=== PATIENT | male | born 1985 | race Two or more races ===

== ENCOUNTER 2023-08-03 02:06 | Inpatient (IN) | payer MEDICAID ==
[~2023-08-03] VITALS: Ht 170.2 cm; Wt 68.5 kg
[~2023-08-03 02:06] MED LIST: FLUO-125 PO; FOLI-119 PO; LACO100T3 PO; LEVE250T18 PO; MIRT-94 PO; PANT40T PO; PHEN1CAP60 PO; QUET400T13 PO; THIA100T13 PO; TOPI100T68 PO
[2023-08-03] MEDS ORDERED: levETIRAcetam 500 MG/5ML INJ IV ONE (02:11)
[2023-08-03] MEDS ORDERED: LORazepam 2MG/ML-1ML VIAL ONE ×2 (02:11→02:33)
[2023-08-03] MEDS ORDERED: LORazepam 2MG/ML-1ML VIAL IV ONE ×4 (02:15→15:00)
[2023-08-03] MEDS ORDERED: SODIUM CHLORIDE 0.9% 1,000 ML IV ONE ×3 (02:15→04:00)
[2023-08-03 02:30] VITALS: PULSE 120; RESP 10; O2SAT 98
[2023-08-03 02:42] LABS: Hematocrit 35.8 % (41.0-53.0); Hemoglobin 12.1 g/dL (13.5-17.5); INR 1.08 (0.9-1.15); Mean Corpuscular Hemoglobin 29.8 pg (28.0-32.0); Mean Corpuscular Hgb Conc. 33.7 g/dL (32.0-36.0); Mean Corpuscular Volume 88.4 fL (80.0-100.0); Partial Thromboplastin Time 31.7 SEC (24.5-34.5); Prothrombin Time 11.3 sec (9.3-11.8); Red Blood Cells 4.05 10^6/uL (4.5-5.90); Red Cell Distribution Width 16.1 % (11.8-14.3); White Blood Cell 6.6 10^3/uL (4.4-10.8)
[2023-08-03] MEDS ORDERED: PANTOPRAZOLE 40 MG/10 ML VIAL INJ IV ONE (02:45)
[2023-08-03] MEDS ORDERED: PHENobarbital SODIUM INJ 260 MG in SODIUM CHL 0.9% 100 ML IV ONE (02:45)
[2023-08-03] MEDS ORDERED: ONDANSETRON HCL 4 MG/2 ML VIAL IV ONE (02:45)
[2023-08-03 02:46] LABS: Band Neutrophils % (manual) 0; Basophils % (manual) 0 (0.0-2.0); Blast Cells 0; Metamyelocytes % 0; Myelocytes % 0; Promyelocytes % 0; Reactive Lymphocytes 0
[2023-08-03 02:48] LABS: Phenytoin (Dilantin) 3.9 ug/mL (10-20)
[2023-08-03 02:49] LABS: Valproic Acid (Depakene) < 3.0 ug/mL (50-100)
[2023-08-03 02:50] LABS: Alanine Aminotransferase 69 U/L (7-40); Albumin 4.4 g/dL (3.2-4.8); Alkaline Phosphatase 100 U/L (46-116); Anion Gap 12 (5-15); Aspartate Aminotransferase 24 U/L (13-40); BUN/Creatinine Ratio 9.4 (10.0-20.0); Blood Alcohol 87.7 mg/dL (<10); Blood Urea Nitrogen 8 mg/dL (9-23); Calcium 8.5 mg/dL (8.7-10.4); Carbon Dioxide 18 mmol/L (20-30); Chloride 109 mmol/L (98-107); Glucose 97 mg/dL (74-106); Magnesium 1.9 mg/dL (1.6-2.6); Potassium 3.6 mmol/L (3.5-5.1); Sodium 139 mmol/L (136-145)
[2023-08-03 02:51] LABS: Bilirubin, Total 0.2 mg/dL (0.2-1.0); Lactic Acid w/Reflex 3.8 mmol/L (0.4-2.0); Total Protein 7.6 g/dL (5.7-8.2)
[2023-08-03] MEDS ORDERED: PHENobarbital SODIUM 130 MG/ML VL ONE ×2 (02:51→19:47)
[2023-08-03] MEDS ORDERED: PHENYTOIN IV DILANTIN 1,000 MG in SODIUM CHL 0.9% 250 ML IV ONE (03:30)
[2023-08-03] MEDS ORDERED: MVI in SODIUM CHLORIDE 0.9% 1,010 ML ONE (04:17)
[2023-08-03] MEDS ORDERED: THIAMINE 100mg/ml INJ (200mg/2ml VIAL) ONE (04:17)
[2023-08-03] MEDS: FOLIC ACID 1 MG, MULTIPLE VITAMIN 10 ML, MAGNESIUM SULF SDV 50% 8 MEQ, THIAMINE INJ 100... INJ SCH ×10 (04:20→12:59)
[2023-08-03 04:28] LABS: Eosinophils % (manual) 1 (0-7); Lymphocytes % (manual) 64 (10.0-50.0); Monocytes % (manual) 5 (0-12); Platelet Estimate Increased
[2023-08-03 08:30] VITALS: PULSE 94; RESP 14; O2SAT 99
[2023-08-03] MEDS ORDERED: NITROGLYCERIN 0.4 MG SL TAB SL PRN (09:00)
[2023-08-03] MEDS ORDERED: LACOSAMIDE 50 MG TAB PO SCH (10:00)
[2023-08-03] MEDS ORDERED: LACOSAMIDE 200 mg/20ml VIAL IV SCH ×2 (11:00)
[2023-08-03] MEDS: SODIUM CHLORIDE 0.9% 1,000 ML IV SCH ×2 (11:02→15:06)
[2023-08-03] MEDS: FLUoxetine HCL 20 MG CAP PO SCH (11:23)
[2023-08-03] MEDS: FOLIC ACID 1 MG TAB PO SCH (11:23)
[2023-08-03] MEDS: TOPIRAMATE 100 MG TAB PO SCH ×2 (11:23→21:59)
[2023-08-03] MEDS: THIAMINE HCL 100 MG TAB PO SCH (11:24)
[2023-08-03] MEDS: ENOXAPARIN SOD 40 MG/0.4 ML SYRINGE SC SCH (12:19)
[2023-08-03] MEDS: LACOSAMIDE 100 MG in SODIUM CHL 0.9% 50 ML IV SCH ×2 (13:00→21:59)
[2023-08-03] MEDS: PHENYTOIN SODIUM 50 MG/ML 2ML VIAL IV SCH ×2 (13:48→21:59)
[2023-08-03] MEDS: LORazepam 2MG/ML-1ML VIAL IV PRN ×5 (13:54→22:31)
[2023-08-03] MEDS: MIRTAZAPINE 30 MG TAB PO SCH (18:00)
[2023-08-03] MEDS: ACETAMINOPHEN 325 MG TAB PO PRN (18:55)
[2023-08-03 19:30] VITALS: PULSE 75; RESP 20; O2SAT 99
[2023-08-03] MEDS ORDERED: PHENobarbital SODIUM 130 MG/ML VL IV ONE (19:45)
[2023-08-04] VITALS (52 sets, daily range): BP systolic 78–121; BP diastolic 39–80; PULSE 44–119; RESP 7–20; TEMP 97.6–97.9; O2SAT 94–100
[2023-08-04] MEDS ORDERED: MIDAZOLAM HCL 2MG/2ML 2ml VIAL (1mg/ml) IV ONE
[2023-08-04] MEDS ORDERED: SODIUM CHLORIDE 0.9% 1,000 ML IV ONE (00:30)
[2023-08-04] MEDS: SODIUM CHLORIDE 0.9% 1,000 ML IV SCH ×3 (01:42→18:20)
[2023-08-04] MEDS ORDERED: PHENYLEPHRINE IV 250 ML IV ONE (02:30)
[2023-08-04] MEDS: PHENYLEPHRINE IV 250 ML IV SCH ×3 (02:41→21:28)
[2023-08-04] MEDS: PHENYTOIN SODIUM 50 MG/ML 2ML VIAL IV SCH ×3 (06:13→21:31)
[2023-08-04] MEDS: LORazepam 2MG/ML-1ML VIAL IV PRN ×8 (06:23→19:45)
[2023-08-04 07:23] LABS: Basophils # (auto) 0.1 10 ^3/uL (0-0.2); Eosinophils # (auto) 0.2 10 ^3/uL (0-0.8); Hemoglobin 10.9 g/dL (13.5-17.5); Lymphocytes # (auto) 2.3 10 ^3/uL (0.4-5.4); Red Cell Distribution Width 15.9 % (11.8-14.3)
[2023-08-04 07:27] LABS: Basophils % (auto) 1.3 % (0.0-2.0); Eosinophils % (auto) 3.6 % (0.0-7.0); Hematocrit 32.2 % (41.0-53.0); Lymphocytes % (auto) 49.7 % (10.0-50.0); Mean Corpuscular Hemoglobin 29.8 pg (28.0-32.0); Mean Corpuscular Hgb Conc. 33.8 g/dL (32.0-36.0); Mean Corpuscular Volume 88.2 fL (80.0-100.0); Monocytes # (auto) 0.4 10 ^3/uL (0-1.3); Monocytes % (auto) 9.5 % (0.0-12.0); Neutrophils # (auto) 1.6 10 ^3/uL (1.6-8.6); Neutrophils % (auto) 35.9 % (37.0-80.0); Red Blood Cells 3.65 10^6/uL (4.5-5.90); White Blood Cell 4.6 10^3/uL (4.4-10.8)
[2023-08-04 07:49] LABS: Phenytoin (Dilantin) 5.6 ug/mL (10-20); Valproic Acid (Depakene) < 3.0 ug/mL (50-100)
[2023-08-04 07:50] LABS: Alanine Aminotransferase 49 U/L (7-40); Albumin 3.5 g/dL (3.2-4.8); Alkaline Phosphatase 77 U/L (46-116); Anion Gap 9 (5-15); Aspartate Aminotransferase 21 U/L (13-40); Bilirubin, Total 0.6 mg/dL (0.2-1.0); Blood Alcohol < 3.0 mg/dL (<10); Blood Urea Nitrogen 6 mg/dL (9-23); Calcium 8.3 mg/dL (8.5-10.1); Carbon Dioxide 19 mmol/L (20-30); Chloride 113 mmol/L (98-107); Glucose 80 mg/dL (74-106); Potassium 3.9 mmol/L (3.5-5.1); Sodium 141 mmol/L (136-145); Total Protein 5.8 g/dL (5.7-8.2)
[2023-08-04] MEDS ORDERED: LIDOCAINE 2% JELLY 11ml (GLYDO) UR ONE (09:45)
[2023-08-04] MEDS: LACOSAMIDE 100 MG in SODIUM CHL 0.9% 50 ML IV SCH ×2 (10:00→22:26)
[2023-08-04] MEDS: FOLIC ACID 1 MG TAB PO SCH (10:55)
[2023-08-04] MEDS: FLUoxetine HCL 20 MG CAP PO SCH (10:55)
[2023-08-04] MEDS: TOPIRAMATE 100 MG TAB PO SCH ×2 (10:55→21:30)
[2023-08-04] MEDS: THIAMINE HCL 100 MG TAB PO SCH (10:56)
[2023-08-04] MEDS: ENOXAPARIN SOD 40 MG/0.4 ML SYRINGE SC SCH (10:56)
[2023-08-04] MEDS: MIRTAZAPINE 30 MG TAB PO SCH (17:54)
[2023-08-05] VITALS (98 sets, daily range): BP systolic 72–124; BP diastolic 28–88; PULSE 44–145; RESP 8–37; TEMP 97.4–99.2; O2SAT 91–100
[2023-08-05] MEDS: SODIUM CHLORIDE 0.9% 1,000 ML IV SCH (02:44)
[2023-08-05] MEDS: PHENYLEPHRINE IV 250 ML IV SCH ×4 (03:43→20:46)
[2023-08-05] MEDS: LORazepam 2MG/ML-1ML VIAL IV PRN ×6 (05:08→18:09)
[2023-08-05] MEDS: PHENYTOIN SODIUM 50 MG/ML 2ML VIAL IV SCH ×3 (05:17→22:19)
[2023-08-05] MEDS: FOLIC ACID 1 MG TAB PO SCH (09:20)
[2023-08-05] MEDS: THIAMINE HCL 100 MG TAB PO SCH (09:21)
[2023-08-05] MEDS: FLUoxetine HCL 20 MG CAP PO SCH (09:21)
[2023-08-05] MEDS: TOPIRAMATE 100 MG TAB PO SCH ×2 (09:21→22:19)
[2023-08-05] MEDS: ENOXAPARIN SOD 40 MG/0.4 ML SYRINGE SC SCH (09:22)
[2023-08-05] MEDS: LACOSAMIDE 100 MG in SODIUM CHL 0.9% 50 ML IV SCH ×2 (09:50→22:41)
[2023-08-05] MEDS: FOLIC ACID 1 MG, MULTIPLE VITAMIN 10 ML, MAGNESIUM SULF SDV 50% 8 MEQ, THIAMINE INJ 100... INJ SCH ×5 (12:00)
[2023-08-05] MEDS ORDERED: SODIUM CHLORIDE 0.9% 1,000 ML IV ONE (15:00)
[2023-08-05] MEDS: MIRTAZAPINE 30 MG TAB PO SCH (18:09)
[2023-08-06] VITALS (94 sets, daily range): BP systolic 79–126; BP diastolic 35–90; PULSE 52–126; RESP 8–20; TEMP 98.4–98.9; O2SAT 71–100
[2023-08-06] MEDS: LORazepam 2MG/ML-1ML VIAL IV PRN ×8 (03:16→22:15)
[2023-08-06] MEDS: PHENYLEPHRINE IV 250 ML IV SCH ×4 (04:08→19:12)
[2023-08-06] MEDS: PHENYTOIN SODIUM 50 MG/ML 2ML VIAL IV SCH ×3 (05:44→21:28)
[2023-08-06 10:15] LABS: Basophils # (auto) 0.1 10 ^3/uL (0-0.2); Eosinophils # (auto) 0.3 10 ^3/uL (0-0.8); Eosinophils % (auto) 3.3 % (0.0-7.0); Hematocrit 36.3 % (41.0-53.0); Hemoglobin 12.2 g/dL (13.5-17.5); Lymphocytes # (auto) 3.4 10 ^3/uL (0.4-5.4); Mean Corpuscular Hgb Conc. 33.7 g/dL (32.0-36.0); Neutrophils # (auto) 3.4 10 ^3/uL (1.6-8.6); Nucleated Red Blood Cells % 0.1 %
[2023-08-06 10:18] LABS: Basophils % (auto) 1.1 % (0.0-2.0); Lymphocytes % (auto) 44.1 % (10.0-50.0); Mean Corpuscular Hemoglobin 29.8 pg (28.0-32.0); Mean Corpuscular Volume 88.4 fL (80.0-100.0); Monocytes # (auto) 0.6 10 ^3/uL (0-1.3); Monocytes % (auto) 8.1 % (0.0-12.0); Neutrophils % (auto) 43.4 % (37.0-80.0); Red Blood Cells 4.11 10^6/uL (4.5-5.90); Red Cell Distribution Width 15.6 % (11.8-14.3); White Blood Cell 7.7 10^3/uL (4.4-10.8)
[2023-08-06 10:39] LABS: Chloride 107 mmol/L (98-107); Potassium 3.7 mmol/L (3.5-5.1); Sodium 139 mmol/L (136-145)
[2023-08-06 10:40] LABS: Anion Gap 11 (5-15); Carbon Dioxide 21 mmol/L (20-30)
[2023-08-06 10:41] LABS: Calcium 9.2 mg/dL (8.5-10.1)
[2023-08-06 10:45] LABS: Glucose 61 mg/dL (74-106)
[2023-08-06 10:50] LABS: BUN/Creatinine Ratio 6.6 (10.0-20.0); Blood Urea Nitrogen < 5 mg/dL (9-23)
[2023-08-06] MEDS: ENOXAPARIN SOD 40 MG/0.4 ML SYRINGE SC SCH (11:21)
[2023-08-06] MEDS: TOPIRAMATE 100 MG TAB PO SCH ×2 (11:21→21:29)
[2023-08-06] MEDS: FOLIC ACID 1 MG TAB PO SCH (11:22)
[2023-08-06] MEDS: FLUoxetine HCL 20 MG CAP PO SCH (11:22)
[2023-08-06] MEDS: THIAMINE HCL 100 MG TAB PO SCH (11:22)
[2023-08-06] MEDS: LACTATED RINGER'S 1,000 ML IV SCH ×2 (11:24→21:27)
[2023-08-06] MEDS: FOLIC ACID 1 MG, MULTIPLE VITAMIN 10 ML, MAGNESIUM SULF SDV 50% 8 MEQ, THIAMINE INJ 100... INJ SCH ×5 (12:00)
[2023-08-06] MEDS: LACOSAMIDE 100 MG in SODIUM CHL 0.9% 50 ML IV SCH ×2 (12:33→21:52)
[2023-08-06] MEDS: MORPHINE SULFATE INJ 2 MG/ml SYRG IV PRN ×3 (15:06→23:08)
[2023-08-06] MEDS: MIRTAZAPINE 30 MG TAB PO SCH (18:00)
[2023-08-06] MEDS: ACETAMINOPHEN 325 MG TAB PO PRN (22:46)
[2023-08-07] VITALS (92 sets, daily range): BP systolic 79–126; BP diastolic 28–88; PULSE 46–103; RESP 7–18; TEMP 98.1–98.6; O2SAT 87–100
[2023-08-07] MEDS: LORazepam 2MG/ML-1ML VIAL IV PRN ×6 (00:58→17:18)
[2023-08-07] MEDS: PHENYLEPHRINE IV 250 ML IV SCH ×5 (02:18→23:19)
[2023-08-07] MEDS: PHENYTOIN SODIUM 50 MG/ML 2ML VIAL IV SCH ×3 (05:07→22:18)
[2023-08-07] MEDS: LACTATED RINGER'S 1,000 ML IV SCH ×3 (07:26→23:20)
[2023-08-07] MEDS: TOPIRAMATE 100 MG TAB PO SCH ×2 (09:05→22:17)
[2023-08-07] MEDS: THIAMINE HCL 100 MG TAB PO SCH (09:05)
[2023-08-07] MEDS: FOLIC ACID 1 MG TAB PO SCH (09:05)
[2023-08-07] MEDS: ENOXAPARIN SOD 40 MG/0.4 ML SYRINGE SC SCH (09:11)
[2023-08-07] MEDS: FLUoxetine HCL 20 MG CAP PO SCH (09:37)
[2023-08-07] MEDS: LACOSAMIDE 100 MG in SODIUM CHL 0.9% 50 ML IV SCH ×2 (12:26→22:25)
[2023-08-07] MEDS: MIDODRINE HCL 10 MG TAB PO SCH ×2 (13:11→18:32)
[2023-08-07] MEDS: FOLIC ACID 1 MG, MULTIPLE VITAMIN 10 ML, MAGNESIUM SULF SDV 50% 8 MEQ, THIAMINE INJ 100... INJ SCH ×5 (13:14)
[2023-08-07] MEDS: MIRTAZAPINE 30 MG TAB PO SCH (18:28)
[2023-08-08] VITALS (99 sets, daily range): BP systolic 84–140; BP diastolic 39–90; PULSE 45–140; RESP 6–23; TEMP 98–98.3; O2SAT 90–100
[2023-08-08 04:14] LABS: Hemoglobin 12.2 g/dL (13.5-17.5); Neutrophils # (auto) 3.7 10 ^3/uL (1.6-8.6); White Blood Cell 8.9 10^3/uL (4.4-10.8)
[2023-08-08 04:17] LABS: Basophils # (auto) 0.1 10 ^3/uL (0-0.2); Basophils % (auto) 0.7 % (0.0-2.0); Eosinophils # (auto) 0.4 10 ^3/uL (0-0.8); Hematocrit 36.3 % (41.0-53.0); Lymphocytes % (auto) 44.9 % (10.0-50.0); Mean Corpuscular Hemoglobin 29.8 pg (28.0-32.0); Mean Corpuscular Hgb Conc. 33.6 g/dL (32.0-36.0); Mean Corpuscular Volume 88.7 fL (80.0-100.0); Monocytes # (auto) 0.8 10 ^3/uL (0-1.3); Monocytes % (auto) 8.9 % (0.0-12.0); Neutrophils % (auto) 41.5 % (37.0-80.0); Red Blood Cells 4.09 10^6/uL (4.5-5.90); Red Cell Distribution Width 15.3 % (11.8-14.3)
[2023-08-08 04:21] LABS: Anion Gap 10 (5-15); Carbon Dioxide 21 mmol/L (20-30); Chloride 111 mmol/L (98-107); Potassium 3.6 mmol/L (3.5-5.1); Sodium 142 mmol/L (136-145)
[2023-08-08 04:22] LABS: Calcium 8.8 mg/dL (8.7-10.4)
[2023-08-08 04:27] LABS: Glucose 103 mg/dL (74-106)
[2023-08-08] MEDS: PHENYLEPHRINE IV 250 ML IV SCH ×4 (04:47→20:49)
[2023-08-08 04:50] LABS: BUN/Creatinine Ratio 6.3 (10.0-20.0); Blood Urea Nitrogen < 5 mg/dL (9-23)
[2023-08-08] MEDS: MIDODRINE HCL 10 MG TAB PO SCH ×3 (05:51→18:34)
[2023-08-08] MEDS: PHENYTOIN SODIUM 50 MG/ML 2ML VIAL IV SCH ×3 (05:51→21:40)
[2023-08-08] MEDS: LORazepam 2MG/ML-1ML VIAL IV PRN ×8 (07:27→18:16)
[2023-08-08] MEDS: LACTATED RINGER'S 1,000 ML IV SCH ×2 (10:39→15:20)
[2023-08-08] MEDS: ENOXAPARIN SOD 40 MG/0.4 ML SYRINGE SC SCH (11:02)
[2023-08-08] MEDS: TOPIRAMATE 100 MG TAB PO SCH ×2 (11:02→21:39)
[2023-08-08] MEDS: FLUoxetine HCL 20 MG CAP PO SCH (11:03)
[2023-08-08] MEDS: THIAMINE HCL 100 MG TAB PO SCH (11:03)
[2023-08-08] MEDS: FOLIC ACID 1 MG TAB PO SCH (11:03)
[2023-08-08] MEDS: LACOSAMIDE 100 MG in SODIUM CHL 0.9% 50 ML IV SCH ×2 (11:31→19:59)
[2023-08-08] MEDS: FOLIC ACID 1 MG, MULTIPLE VITAMIN 10 ML, MAGNESIUM SULF SDV 50% 8 MEQ, THIAMINE INJ 100... INJ SCH ×5 (12:22)
[2023-08-08] MEDS ORDERED: BACLOFEN 10 MG TAB PO ONE (14:45)
[2023-08-08] MEDS: MIRTAZAPINE 30 MG TAB PO SCH (18:34)
[2023-08-08] MEDS: BACLOFEN 10 MG TAB PO PRN (20:07)
[2023-08-09] VITALS (98 sets, daily range): BP systolic 72–135; BP diastolic 37–99; PULSE 41–127; RESP 7–19; TEMP 97.7–98.5; O2SAT 85–100
[2023-08-09] MEDS: LACTATED RINGER'S 1,000 ML IV SCH ×2 (01:10→17:25)
[2023-08-09] MEDS: PHENYLEPHRINE IV 250 ML IV SCH ×3 (01:10→09:02)
[2023-08-09] MEDS: MIDODRINE HCL 10 MG TAB PO SCH ×3 (05:33→17:21)
[2023-08-09] MEDS: PHENYTOIN SODIUM 50 MG/ML 2ML VIAL IV SCH ×3 (05:33→22:32)
[2023-08-09] MEDS: LORazepam 2MG/ML-1ML VIAL IV PRN ×6 (08:44→17:34)
[2023-08-09] MEDS: THIAMINE HCL 100 MG TAB PO SCH (08:54)
[2023-08-09] MEDS: FOLIC ACID 1 MG TAB PO SCH (08:54)
[2023-08-09] MEDS: FLUoxetine HCL 20 MG CAP PO SCH (08:54)
[2023-08-09] MEDS: THIAMINE 100mg/ml INJ (200mg/2ml VIAL) IV SCH (08:54)
[2023-08-09] MEDS: ENOXAPARIN SOD 40 MG/0.4 ML SYRINGE SC SCH (08:54)
[2023-08-09] MEDS: TOPIRAMATE 100 MG TAB PO SCH ×2 (09:06→22:32)
[2023-08-09] MEDS: LACOSAMIDE 100 MG in SODIUM CHL 0.9% 50 ML IV SCH ×2 (09:56→22:32)
[2023-08-09] MEDS: PHENYLEPHRINE INJ 80 MG in SODIUM CHL 0.9% 242 ML IV SCH (10:30)
[2023-08-09] MEDS: ACETAMINOPHEN 325 MG TAB PO PRN (11:13)
[2023-08-09 12:39] LABS: INR 1.09 (0.9-1.15); Partial Thromboplastin Time 37.1 SEC (24.5-34.5); Prothrombin Time 11.4 sec (9.3-11.8)
[2023-08-09] MEDS: HYDROcodone-ACET 5/325MG TAB PO PRN (12:55)
[2023-08-09] MEDS: BACLOFEN 10 MG TAB PO PRN (14:44)
[2023-08-09] MEDS ORDERED: LIDOCAINE 1% (LOCAL ANESTH.) PF 5ml SDV ID ONE (14:45)
[2023-08-09] MEDS: MIRTAZAPINE 30 MG TAB PO SCH (17:21)
[2023-08-09] MEDS: SODIUM CHLOR 0.9% PF (SALINE LOCK) 10ML VIAL/SYR IV SCH (22:33)
[2023-08-10] VITALS (93 sets, daily range): BP systolic 87–141; BP diastolic 49–89; PULSE 45–126; RESP 9–20; TEMP 97.8–98.3; O2SAT 79–100
[2023-08-10] MEDS: LORazepam 2MG/ML-1ML VIAL IV PRN ×8 (01:35→18:23)
[2023-08-10] MEDS ORDERED: LORazepam 2MG/ML-1ML VIAL ONE ×2 (01:44→01:56)
[2023-08-10] MEDS ORDERED: LORazepam 2MG/ML-1ML VIAL IV ONE (02:00)
[2023-08-10] MEDS ORDERED: MIDAZOLAM HCL 2MG/2ML 2ml VIAL (1mg/ml) ONE (02:14)
[2023-08-10] MEDS ORDERED: MIDAZOLAM HCL 2MG/2ML 2ml VIAL (1mg/ml) IV ONE (02:15)
[2023-08-10] MEDS: ACETAMINOPHEN 325 MG TAB PO PRN (03:32)
[2023-08-10 04:07] LABS: Hematocrit 35.8 % (41.0-53.0); Hemoglobin 11.7 g/dL (13.5-17.5); Mean Corpuscular Hemoglobin 29.3 pg (28.0-32.0); Mean Corpuscular Hgb Conc. 32.8 g/dL (32.0-36.0); Mean Corpuscular Volume 89.2 fL (80.0-100.0); Red Blood Cells 4.01 10^6/uL (4.5-5.90); Red Cell Distribution Width 15.7 % (11.8-14.3); White Blood Cell 7.7 10^3/uL (4.4-10.8)
[2023-08-10 04:09] LABS: Band Neutrophils % (manual) 0; Basophils % (manual) 0 (0.0-2.0); Blast Cells 0; Metamyelocytes % 0; Myelocytes % 0; Promyelocytes % 0; Reactive Lymphocytes 0
[2023-08-10 04:27] LABS: Anion Gap 9 (5-15); Carbon Dioxide 19 mmol/L (20-30); Chloride 116 mmol/L (98-107); Potassium 3.4 mmol/L (3.5-5.1); Sodium 144 mmol/L (136-145)
[2023-08-10 04:28] LABS: Calcium 7.6 mg/dL (8.7-10.4)
[2023-08-10 04:33] LABS: Glucose 124 mg/dL (74-106)
[2023-08-10 04:37] LABS: BUN/Creatinine Ratio 7.4 (10.0-20.0); Blood Urea Nitrogen < 5 mg/dL (9-23)
[2023-08-10] MEDS: LACTATED RINGER'S 1,000 ML IV SCH ×2 (04:51→17:30)
[2023-08-10 05:01] LABS: Eosinophils % (manual) 5 (0-7); Lymphocytes % (manual) 60 (10.0-50.0); Monocytes % (manual) 2 (0-12); Platelet Estimate Adequate; RBC Morphology Normal
[2023-08-10] MEDS: PHENYTOIN SODIUM 50 MG/ML 2ML VIAL IV SCH ×3 (06:19→22:08)
[2023-08-10] MEDS: MIDODRINE HCL 10 MG TAB PO SCH ×3 (06:19→17:29)
[2023-08-10] MEDS: FLUoxetine HCL 20 MG CAP PO SCH (09:15)
[2023-08-10] MEDS: ENOXAPARIN SOD 40 MG/0.4 ML SYRINGE SC SCH (09:15)
[2023-08-10] MEDS: TOPIRAMATE 100 MG TAB PO SCH ×2 (09:15→22:08)
[2023-08-10] MEDS: THIAMINE 100mg/ml INJ (200mg/2ml VIAL) IV SCH (09:15)
[2023-08-10] MEDS: SODIUM CHLOR 0.9% PF (SALINE LOCK) 10ML VIAL/SYR IV SCH ×2 (09:16→22:08)
[2023-08-10] MEDS: FOLIC ACID 1 MG TAB PO SCH (09:16)
[2023-08-10] MEDS: LACOSAMIDE 100 MG in SODIUM CHL 0.9% 50 ML IV SCH ×2 (09:44→22:08)
[2023-08-10] MEDS: PHENYLEPHRINE INJ 80 MG in SODIUM CHL 0.9% 242 ML IV SCH (10:30)
[2023-08-10] MEDS ORDERED: POTASSIUM CHL 20 Meq TABLET PO ONE (13:15)
[2023-08-10] MEDS: MIRTAZAPINE 30 MG TAB PO SCH (17:29)
[2023-08-11] VITALS (97 sets, daily range): BP systolic 79–133; BP diastolic 44–82; PULSE 49–165; RESP 9–24; TEMP 97.9–98.3; O2SAT 91–100
[2023-08-11 04:30] LABS: Basophils # (auto) 0.1 10 ^3/uL (0-0.2); Basophils % (auto) 0.8 % (0.0-2.0); Eosinophils # (auto) 0.4 10 ^3/uL (0-0.8); Eosinophils % (auto) 5.4 % (0.0-7.0); Lymphocytes # (auto) 3.9 10 ^3/uL (0.4-5.4); Lymphocytes % (auto) 52.6 % (10.0-50.0); Mean Corpuscular Hemoglobin 29.4 pg (28.0-32.0); Mean Corpuscular Hgb Conc. 33.2 g/dL (32.0-36.0); Mean Corpuscular Volume 88.5 fL (80.0-100.0); Monocytes # (auto) 0.6 10 ^3/uL (0-1.3); Monocytes % (auto) 7.9 % (0.0-12.0); Neutrophils # (auto) 2.5 10 ^3/uL (1.6-8.6); Neutrophils % (auto) 33.3 % (37.0-80.0); Red Blood Cells 4.07 10^6/uL (4.5-5.90); White Blood Cell 7.4 10^3/uL (4.4-10.8)
[2023-08-11 04:43] LABS: Anion Gap 8 (5-15); Carbon Dioxide 23 mmol/L (20-30); Chloride 112 mmol/L (98-107); Potassium 3.4 mmol/L (3.5-5.1); Sodium 143 mmol/L (136-145)
[2023-08-11 04:44] LABS: Calcium 8.9 mg/dL (8.7-10.4)
[2023-08-11 04:49] LABS: BUN/Creatinine Ratio 8.6 (10.0-20.0); Blood Urea Nitrogen 7 mg/dL (9-23); Glucose 107 mg/dL (74-106)
[2023-08-11] MEDS: PHENYLEPHRINE INJ 80 MG in SODIUM CHL 0.9% 242 ML IV SCH (05:38)
[2023-08-11] MEDS: PHENYTOIN SODIUM 50 MG/ML 2ML VIAL IV SCH (05:40)
[2023-08-11] MEDS: MIDODRINE HCL 10 MG TAB PO SCH ×3 (05:40→17:43)
[2023-08-11] MEDS: LORazepam 2MG/ML-1ML VIAL IV PRN ×12 (07:51→23:30)
[2023-08-11] MEDS: ENOXAPARIN SOD 40 MG/0.4 ML SYRINGE SC SCH (08:29)
[2023-08-11] MEDS: TOPIRAMATE 100 MG TAB PO SCH ×2 (08:30→22:16)
[2023-08-11] MEDS: FOLIC ACID 1 MG TAB PO SCH (08:30)
[2023-08-11] MEDS: FLUoxetine HCL 20 MG CAP PO SCH (08:30)
[2023-08-11] MEDS: HYDROcodone-ACET 5/325MG TAB PO PRN ×2 (08:30→16:00)
[2023-08-11] MEDS: SODIUM CHLOR 0.9% PF (SALINE LOCK) 10ML VIAL/SYR IV SCH ×2 (08:30→22:16)
[2023-08-11] MEDS: LACTATED RINGER'S 1,000 ML IV SCH (09:25)
[2023-08-11] MEDS: THIAMINE 100mg/ml INJ (200mg/2ml VIAL) IV SCH (09:28)
[2023-08-11] MEDS: LACOSAMIDE 100 MG in SODIUM CHL 0.9% 50 ML IV SCH ×2 (09:28→22:16)
[2023-08-11] MEDS: PHENYTOIN IV DILANTIN 200 MG in SODIUM CHL 0.9% 50 ML IV SCH ×2 (13:02→22:17)
[2023-08-11] MEDS: ACETAMINOPHEN 325 MG TAB PO PRN (13:34)
[2023-08-11] MEDS ORDERED: PHENYTOIN SODIUM 50 MG/ML 2ML VIAL IV SCH (14:00)
[2023-08-11] MEDS ORDERED: POTASSIUM CHL 20 Meq TABLET PO ONE (14:00)
[2023-08-11] MEDS: BACLOFEN 10 MG TAB PO PRN (14:40)
[2023-08-11] MEDS: MIRTAZAPINE 30 MG TAB PO SCH (17:43)
[2023-08-12] VITALS (49 sets, daily range): BP systolic 80–173; BP diastolic 33–111; PULSE 46–121; RESP 8–17; TEMP 98–98.1; O2SAT 78–100
[2023-08-12] MEDS: HYDROcodone-ACET 5/325MG TAB PO PRN (00:19)
[2023-08-12] MEDS: LACTATED RINGER'S 1,000 ML IV SCH (00:22)
[2023-08-12] MEDS: PHENYLEPHRINE INJ 80 MG in SODIUM CHL 0.9% 242 ML IV SCH (02:46)
[2023-08-12] MEDS: MIDODRINE HCL 10 MG TAB PO SCH ×2 (05:33→11:44)
[2023-08-12] MEDS: PHENYTOIN IV DILANTIN 200 MG in SODIUM CHL 0.9% 50 ML IV SCH (05:34)
[2023-08-12] MEDS: LORazepam 2MG/ML-1ML VIAL IV PRN ×3 (08:37→10:51)
[2023-08-12] MEDS: FOLIC ACID 1 MG TAB PO SCH (09:52)
[2023-08-12] MEDS: THIAMINE 100mg/ml INJ (200mg/2ml VIAL) IV SCH (09:52)
[2023-08-12] MEDS: ENOXAPARIN SOD 40 MG/0.4 ML SYRINGE SC SCH (09:52)
[2023-08-12] MEDS: SODIUM CHLOR 0.9% PF (SALINE LOCK) 10ML VIAL/SYR IV SCH (09:53)
[2023-08-12] MEDS: FLUoxetine HCL 20 MG CAP PO SCH (09:53)
[2023-08-12] MEDS: TOPIRAMATE 100 MG TAB PO SCH (09:53)
[2023-08-12] MEDS: LACOSAMIDE 100 MG in SODIUM CHL 0.9% 50 ML IV SCH (10:14)
== END 2023-08-12 12:35 | disposition short-term general hospital (02) | DRG 53 ==
LOC: EDBD 02:06 → EDSEX 02:06 → ER 02:06 → TELE 08:55 → ICU WEST 08-04 11:46
PROVIDERS: ADMIT Nurse Practitioner Family; ATTEND Nurse Practitioner Acute Care
PROC: 02HV33Z Insertion of Infusion Device into Superior Vena Cava, Percutaneous Approach (ICD-10-PCS; principal; 2023-08-09)
PROC: B548ZZA Ultrasonography of Superior Vena Cava, Guidance (ICD-10-PCS; 2023-08-09)
DX: G40.901 Epilepsy, unspecified, not intractable, with status epilepticus (principal); I95.9 Hypotension, unspecified; F10.229 Alcohol dependence with intoxication, unspecified; F32.9 Major depressive disorder, single episode, unspecified; Y90.4 Blood alcohol level of 80-99 mg/100 ml; F17.200 Nicotine dependence, unspecified, uncomplicated; Z82.0 Family history of epilepsy and other diseases of the nervous system; Z82.49 Family history of ischemic heart disease and other diseases of the circulatory system; Z91.148 Patient's other noncompliance with medication regimen for other reason; Z91.199 Patient's noncompliance with other medical treatment and regimen due to unspecified reason
CPT/HCPCS: 36415; 36569; 70450; 71045; 80048; 80053; 80164; 80185; 80320; 82542; 82550; 83605; 83735; 84146; 84484; 85007; 85025; 85027; 85610; 85730; 87081; 93005; 99291; C9113; C9254; G0378; J2250; J7060